=== PATIENT | female | born 1955 | race Caucasian/White ===

== ENCOUNTER 2020-04-24 13:15 | Observation (INO) ==
[2020-04-24] MEDS ORDERED: *HR* Promethazine 25 MG/ML VIAL IM ONE (13:27)
[2020-04-24] MEDS ORDERED: 0.9 % Sodium Chloride 1,000 ML IVC ONE (13:27)
[2020-04-24] MEDS ORDERED: Isovue-370 500 ML BOTTLE IVP ONE (13:29)
[2020-04-24 13:38] LABS: Basophils # 0.1 K/mcL (0.0-0.2); Basophils % 0.7 %; Eosinophils # 0.2 K/mcL (0.0-0.6); Hematocrit 37.1 % (35.3-44.9); Hemoglobin 11.9 g/dL (11.5-15.4); Immature Granulocytes % 0.3 % (0-4); Lymphocytes # 1.9 K/mcL (0.6-4.6); Lymphocytes % 16.5 %; Mean Corpuscular HGB Conc 32.1 g/dL (31.6-35.5); Mean Corpuscular Hemoglobin 28.3 pg (28.0-33.3); Mean Corpuscular Volume 88.1 fL (83.0-100.0); Monocytes # 0.9 K/mcL (0.0-1.3); Monocytes % 7.7 %; Neutrophils # 8.5 K/mcL (1.6-8.9); Platelet Count 243 K/mcL (140-400); Red Blood Count 4.21 M/mcL (3.82-4.97); Red Cell Distribution Width 13.7 % (11.5-14.5); Segmented Neutrophils % 72.8 %; White Blood Count 11.6 K/mcL (4.3-11.1)
[2020-04-24 13:59] LABS: Alanine Aminotransferase 25 Units/L (7-52); Albumin 4.5 g/dL (3.5-5.7); Albumin/Globulin Ratio 1.7 (1.1-2.2); Alkaline Phosphatase 48 Units/L (34-104); Aspartate Amino Transferase 38 Units/L (13-39); BUN/Creatinine Ratio 9 (6-26); Bilirubin,Total 1.3 mg/dL (0.3-1.0); Blood Urea Nitrogen 16 mg/dL (8-23); Calcium 8.9 mg/dL (8.6-10.3); Carbon Dioxide 18 mEq/L (23-29); Chloride 103 mEq/L (98-107); Globulin 2.6 g/dL (2.4-3.5); Glucose 161 mg/dL (70-105); Lipase 36 Units/L (11-82); Osmolality,Calculated 295 (280-300); Potassium 3.3 mEq/L (3.5-5.1); Sodium 140 mEq/L (136-145); Total Protein 7.1 g/dL (6.4-8.9); Troponin I < 0.03 ng/mL (< 0.04); eGFR For African Americans 37 (> 60); eGFR For Non-African Americans 30 (> 60)
[2020-04-24 14:13] LABS: Amorphous Sediment,Urine Few per hpf (None-Few); Bacteria,Urine Few per hpf (None-Few); Bilirubin,Urine Small (Negative); Blood,Urine Negative (Negative); Clarity,Urine Turbid (Clear); Color,Urine Yellow (Yellow); Glucose,Urine (UA) Normal (Normal); Hyaline Casts,Urine Few per lpf (None Seen); Ketones,Urine Trace mg/dL (Negative); Leukocyte Esterase,Urine Small (Negative); Mucus,Urine Many per lpf (None-Few); Nitrite,Urine Negative (Negative); Protein,Urine 100 mg/dL (Neg-Trace); Specific Gravity,Urine 1.028 (1.010-1.025); Squamous Epithelial Cell,Urine Few per hpf (None-Few); WBC,Urine 15-30 per hpf (0-3)
[2020-04-24] MEDS ORDERED: cefTRIAXone 1,000 MG in Water for inj. (sterile) 10 ML IVP ONE (15:32)
[2020-04-24] MEDS ORDERED: Ondansetron 4 MG/2 ML VIAL IVP PRN (16:51)
[2020-04-24] MEDS ORDERED: Naloxone 0.4 MG/ML INJ IVP PRN (16:51)
[2020-04-24] MEDS ORDERED: *HR* Dextrose 50 % in Water (Vial) 50 ML VIAL IVP PRN (17:01)
[2020-04-24] MEDS ORDERED: Dextrose Gel 15 GM/37.5 ML TUBE PO PRN ×2 (17:01)
[2020-04-24] MEDS ORDERED: D5% in Water 1,000 ML IVC PRN (17:01)
[2020-04-24] MEDS ORDERED: *HR* OxyCODONE/APAP 5/325 TABLET PO PRN (17:43)
[2020-04-24 18:28] LABS: C-Reactive Protein < 5 mg/L (Less than 10)
[2020-04-24] MEDS: 0.9 % Sodium Chloride 1,000 ML IVC SCH (18:35)
[2020-04-24] MEDS: Insulin LISPRO 300 UNITS/3 ML VIAL SQ SCH (21:48)
[2020-04-25 01:45] LABS: Basophils % 0.5 %; Eosinophils # 0.2 K/mcL (0.0-0.6); Eosinophils % 2.7 %; Hematocrit 30.9 % (35.3-44.9); Immature Granulocytes % 0.1 % (0-4); Lymphocytes # 2.4 K/mcL (0.6-4.6); Lymphocytes % 29.3 %; Mean Corpuscular Volume 90.6 fL (83.0-100.0); Mean Platelet Volume 12.1 fL (9.4-12.4); Monocytes # 0.7 K/mcL (0.0-1.3); Monocytes % 8.9 %; Neutrophils # 4.7 K/mcL (1.6-8.9); Platelet Count 154 K/mcL (140-400); Red Blood Count 3.41 M/mcL (3.82-4.97); Red Cell Distribution Width 13.6 % (11.5-14.5); Segmented Neutrophils % 58.5 %; White Blood Count 8.1 K/mcL (4.3-11.1)
[2020-04-25 01:47] LABS: INR 1.3; Prothrombin Time 15.3 Seconds (9.4-12.1)
[2020-04-25 01:48] LABS: Hemoglobin 9.9 g/dL (11.5-15.4)
[2020-04-25 02:04] LABS: Calcium 7.9 mg/dL (8.6-10.3); Potassium 3.6 mEq/L (3.5-5.1)
[2020-04-25 02:18] LABS: Thyroid Stimulating Hormone 1.498 mcIU/mL (0.340-5.600)
[2020-04-25] MEDS: 0.9 % Sodium Chloride 1,000 ML IVC SCH (03:40)
[2020-04-25] MEDS ORDERED: *HR* Enoxaparin 40 MG/0.4 ML SYRINGE SQ SCH (06:00)
[2020-04-25] MEDS: Insulin LISPRO 300 UNITS/3 ML VIAL SQ SCH ×4 (08:40→22:04)
[2020-04-25] MEDS: Cyanocobalamin (B-12) 1,000 MCG TABLET PO SCH (09:01)
[2020-04-25] MEDS: Aspirin Enteric Coated 81 MG Tablet PO SCH (09:01)
[2020-04-25] MEDS: cefTRIAXone 1,000 MG in Water for inj. (sterile) 20 ML IVPB SCH (09:01)
[2020-04-25] MEDS: amLODIPine 5 MG TABLET PO SCH (09:01)
[2020-04-25] MEDS ORDERED: Gadolinium Contrast Agent (WT Based) IV PRN (13:20)
[2020-04-26 05:20] LABS: Basophils # 0.1 K/mcL (0.0-0.2); Basophils % 0.9 %; Eosinophils # 0.4 K/mcL (0.0-0.6); Eosinophils % 6.4 %; Hematocrit 35.7 % (35.3-44.9); Hemoglobin 10.9 g/dL (11.5-15.4); Immature Granulocytes % 0.2 % (0-4); Lymphocytes # 2.2 K/mcL (0.6-4.6); Lymphocytes % 33.8 %; Mean Corpuscular HGB Conc 30.5 g/dL (31.6-35.5); Mean Corpuscular Hemoglobin 29.5 pg (28.0-33.3); Mean Corpuscular Volume 96.5 fL (83.0-100.0); Monocytes # 0.6 K/mcL (0.0-1.3); Monocytes % 8.6 %; Neutrophils # 3.3 K/mcL (1.6-8.9); Nucleated Red Blood Cells 0.3 /100 WBC (0); Platelet Count 132 K/mcL (140-400); Red Cell Distribution Width 13.8 % (11.5-14.5); Segmented Neutrophils % 50.1 %; White Blood Count 6.5 K/mcL (4.3-11.1)
[2020-04-26 05:38] LABS: BUN/Creatinine Ratio 6 (6-26); Blood Urea Nitrogen 6 mg/dL (8-23); Calcium 7.9 mg/dL (8.6-10.3); Carbon Dioxide 20 mEq/L (23-29); Chloride 109 mEq/L (98-107); Glucose 92 mg/dL (70-105); Osmolality,Calculated 287 (280-300); Potassium 3.3 mEq/L (3.5-5.1); Sodium 140 mEq/L (136-145); eGFR For African Americans > 60 (> 60); eGFR For Non-African Americans 58 (> 60)
[2020-04-26] MEDS ORDERED: *HR* Enoxaparin 40 MG/0.4 ML SYRINGE SQ SCH (06:00)
[2020-04-26] MEDS ORDERED: Gadolinium Contrast Agent (WT Based) IV PRN (06:25)
[2020-04-26] MEDS: amLODIPine 5 MG TABLET PO SCH (07:39)
[2020-04-26] MEDS: Cyanocobalamin (B-12) 1,000 MCG TABLET PO SCH (07:39)
[2020-04-26] MEDS: Aspirin Enteric Coated 81 MG Tablet PO SCH (07:40)
[2020-04-26] MEDS: cefTRIAXone 1,000 MG in Water for inj. (sterile) 20 ML IVPB SCH (07:40)
[2020-04-26] MEDS: Insulin LISPRO 300 UNITS/3 ML VIAL SQ SCH ×3 (08:05→16:45)
[2020-04-26] MEDS ORDERED: Acetaminophen 325 MG TABLET PO PRN (09:45)
[2020-04-26 19:11] VITALS: BP 126/81
== END 2020-04-26 22:31 | disposition home or self-care (01) ==
LOC: EMEROOARM 13:15 → 3ANU 13:15
PROVIDERS: ADMIT Internal Medicine; ATTEND Internal Medicine